=== PATIENT | female | born 1945 | race Caucasian/White ===

== ENCOUNTER 2018-07-13 08:34 | Day surgery (SDC) | payer MEDICARE, BC ==
[2018-07-13] VITALS (14 sets, daily range): BP systolic 90–170; BP diastolic 34–85
[~2018-07-13] VITALS: Ht 162.6 cm; Wt 82.3 kg
[~2018-07-13 08:34] MED LIST: APIX5TAB3 PO; ASPI-611 PO; ATOR10TA PO; CALC600T12 PO; LEVO88TA2 PO; LISI10TA4 PO; METO25TA6 PO; MULT-1085 PO; OMEP40CA37 PO; ZINC30TA2 PO
[2018-07-13] MEDS ORDERED: normal saline 1000ml 1,000 ML IV SCH (09:05)
[2018-07-13] MEDS ORDERED: fentaNYL/PF 50MCG/1 ML 2ML syringe IV ONE (09:05)
[2018-07-13] MEDS ORDERED: MIDAZolam 5mg/ml 2ml vial IV ONE (09:05)
[2018-07-13] MEDS ORDERED: FLEC100T2 PO (09:10)
[2018-07-13] MEDS ORDERED: RIVA20TA PO (09:10)
[2018-07-13] MEDS ORDERED: SYN0.088T PO (09:10)
[2018-07-13] MEDS ORDERED: DENO60DI IM (09:10)
[2018-07-13 09:37] LABS: BASOPHILS % (AUTO) 0.2 % (0-1); EOSINOPHILS # (AUTO) 0.1 X10'3 (0-0.9); EOSINOPHILS % (AUTO) 2.5 % (0-6); HEMATOCRIT 46.8 % (35.0-45.0); HEMOGLOBIN 15.7 g/dl (12.0-16.0); LYMPHOCYTES # (AUTO) 1.7 X10'3 (1.1-4.8); LYMPHOCYTES % (AUTO) 29.1 % (21-51); MEAN CORPUSCULAR HEMOGLOBIN 32.7 PG (27.0-31.0); MEAN CORPUSCULAR HGB CONC 33.7 % (33.0-36.5); MEAN CORPUSCULAR VOLUME 97.1 FL (78-98); MEAN PLATELET VOLUME 7.4 FL (7.4-10.4); MONOCYTES # (AUTO) 0.5 X10'3 (0-0.9); NEUTROPHILS # (AUTO) 3.5 X10'3 (1.8-7.7); NEUTROPHILS % (AUTO) 60.2 % (42-75); PLATELET COUNT 262 X10'3 (140-440); RED BLOOD COUNT 4.81 X10'6 (4.20-5.60); RED CELL DISTRIBUTION WIDTH 13.8 % (11.5-14.5); WHITE BLOOD COUNT 5.8 X10'3 (4.5-11.0)
[2018-07-13 09:54] LABS: ALBUMIN 4.2 G/DL (3.4-5.0); ANION GAP 11 (8-16); BLOOD UREA NITROGEN 20 MG/DL (7-18); BUN/CREATININE RATIO 25.3 (6.6-38.0); CALCIUM 9.3 MG/DL (8.5-10.1); CHLORIDE 100 MMOL/L (99-107); CREATININE 0.79 MG/DL (0.40-0.90); GLUCOSE 117 MG/DL (70-104); MAGNESIUM 2.2 MG/DL (1.5-2.4); POTASSIUM 3.8 MMOL/L (3.5-5.1); SODIUM 138 MMOL/L (135-145); eGFR 71 ML/MIN
[2018-07-13 10:06] LABS: INR 1.2 INR
== END 2018-07-13 11:10 | disposition home or self-care (01) ==
LOC: SSTAY O 08:34
PROVIDERS: ATTEND Internal Medicine Cardiovascular Disease
DX: I48.4 Atypical atrial flutter (principal); I48.91 Unspecified atrial fibrillation; I45.81 Long QT syndrome; J44.9 Chronic obstructive pulmonary disease, unspecified; E78.5 Hyperlipidemia, unspecified; E66.3 Overweight; I11.0 Hypertensive heart disease with heart failure; I50.9 Heart failure, unspecified; M81.0 Age-related osteoporosis without current pathological fracture; Z79.82 Long term (current) use of aspirin; Z87.891 Personal history of nicotine dependence; Z87.09 Personal history of other diseases of the respiratory system; Z85.41 Personal history of malignant neoplasm of cervix uteri; Z90.710 Acquired absence of both cervix and uterus; Z68.31 Body mass index [BMI] 31.0-31.9, adult; Z90.49 Acquired absence of other specified parts of digestive tract; Z98.890 Other specified postprocedural states; Z79.899 Other long term (current) drug therapy; Z82.49 Family history of ischemic heart disease and other diseases of the circulatory system; Z80.6 Family history of leukemia; Z83.6 Family history of other diseases of the respiratory system
CPT/HCPCS: 36415; 80048; 83735; 85025; 85610; 92960; 93005; J2250; J3010

== ENCOUNTER 2018-08-24 07:10 | Day surgery (SDC) | payer MEDICARE, BC ==
[2018-08-24] VITALS (12 sets, daily range): BP systolic 103–147; BP diastolic 48–79
[~2018-08-24] VITALS: Ht 162.6 cm; Wt 83.1 kg
[~2018-08-24 07:10] MED LIST changes: -APIX5TAB3 PO; +DENO60DI IM; +FLEC100T2 PO; -LEVO88TA2 PO; -METO25TA6 PO; -OMEP40CA37 PO; +RIVA20TA PO; +SYN0.088T PO
[2018-08-24] MEDS ORDERED: AMIO200T54 PO (07:43)
[2018-08-24] MEDS ORDERED: CALC1TAB2 (07:43)
[2018-08-24] MEDS ORDERED: normal saline 1000ml 1,000 ML IV SCH (07:45)
[2018-08-24] MEDS ORDERED: fentaNYL/PF 50MCG/1 ML 2ML syringe IV ONE (07:50)
[2018-08-24] MEDS ORDERED: MIDAZolam 1mg/ml 10ml vial IV ONE (07:50)
[2018-08-24 08:19] LABS: BASOPHILS % (AUTO) 0.6 % (0-1); EOSINOPHILS # (AUTO) 0.2 X10'3 (0-0.9); HEMATOCRIT 42.5 % (35.0-45.0); HEMOGLOBIN 14.5 g/dl (12.0-16.0); LYMPHOCYTES # (AUTO) 1.8 X10'3 (1.1-4.8); LYMPHOCYTES % (AUTO) 29.1 % (21-51); MEAN CORPUSCULAR HEMOGLOBIN 33.5 PG (27.0-31.0); MEAN CORPUSCULAR HGB CONC 34.2 g/dL (33.0-36.5); MEAN CORPUSCULAR VOLUME 98.1 FL (78-98); MEAN PLATELET VOLUME 7.3 FL (7.4-10.4); MONOCYTES # (AUTO) 0.6 X10'3 (0-0.9); MONOCYTES % (AUTO) 9.4 % (2-12); NEUTROPHILS # (AUTO) 3.7 X10'3 (1.8-7.7); NEUTROPHILS % (AUTO) 57.9 % (42-75); PLATELET COUNT 273 X10'3 (140-440); RED BLOOD COUNT 4.33 X10'6 (4.20-5.60); RED CELL DISTRIBUTION WIDTH 13.3 % (11.5-14.5); WHITE BLOOD COUNT 6.3 X10'3 (4.5-11.0)
[2018-08-24 08:22] LABS: INR 1.3 INR; PROTHROMBIN TIME 12.9 SECONDS (9.0-12.0)
[2018-08-24 08:25] LABS: ALBUMIN 3.9 G/DL (3.4-5.0); ANION GAP 9 (8-16); BLOOD UREA NITROGEN 25 MG/DL (7-18); BUN/CREATININE RATIO 26.3 (6.6-38.0); CALCIUM 9.4 MG/DL (8.5-10.1); CHLORIDE 102 MMOL/L (99-107); CREATININE 0.95 MG/DL (0.40-0.90); GLUCOSE 103 MG/DL (70-104); MAGNESIUM 2.1 MG/DL (1.5-2.4); POTASSIUM 3.9 MMOL/L (3.5-5.1); SODIUM 138 MMOL/L (135-145); TOTAL CARBON DIOXIDE 27.2 MMOL/L (24-32); eGFR 58 ML/MIN
--- NOTE | 2018-08-24 09:15 | NUR ---
PT MOBILE DID NOT TAKE 15MIN INTERVAL BP. PT A/O X4. sPO2 READING TAKEN WITH HR, DOCUMENTED
--- NOTE | 2018-08-24 09:27 | NUR ---
CORRECTION PT HR 79 NOT 97 CHARTED.
--- NOTE | 2018-08-24 10:00 | NUR ---
pt A/Ox4, visiting with daughter who is at the bedside.
== END 2018-08-24 11:15 | disposition home or self-care (01) ==
LOC: SSTAY O 07:10
PROVIDERS: ATTEND Internal Medicine Cardiovascular Disease
DX: I48.1 Persistent atrial fibrillation (principal); I48.4 Atypical atrial flutter; I50.9 Heart failure, unspecified; J44.9 Chronic obstructive pulmonary disease, unspecified; E78.5 Hyperlipidemia, unspecified; Z79.899 Other long term (current) drug therapy; E66.3 Overweight; Z90.710 Acquired absence of both cervix and uterus; Z90.49 Acquired absence of other specified parts of digestive tract; Z98.890 Other specified postprocedural states; Z82.49 Family history of ischemic heart disease and other diseases of the circulatory system; I11.0 Hypertensive heart disease with heart failure; Z79.01 Long term (current) use of anticoagulants
CPT/HCPCS: 36415; 80048; 83735; 85025; 85610; 92960; 93005; J2250; J3010; J7030

== ENCOUNTER 2019-05-31 10:01 | Day surgery (SDC) | payer MEDICARE, BC ==
[2019-05-31] VITALS (11 sets, daily range): BP systolic 92–173; BP diastolic 44–83
[~2019-05-31] VITALS: Ht 160 cm; Wt 86.0 kg
[~2019-05-31 10:01] MED LIST changes: +AMIO200T54 PO; +CALC1TAB2; -CALC600T12 PO; -FLEC100T2 PO; -ZINC30TA2 PO
[2019-05-31] MEDS ORDERED: MIDAZolam 5mg/ml 2ml vial IV ONE (10:25)
[2019-05-31] MEDS ORDERED: LORazepam 0.5 MG tablet PO ONE (10:25)
[2019-05-31] MEDS ORDERED: fentaNYL/PF 50MCG/1 ML 2ML syringe IV ONE (10:25)
[2019-05-31] MEDS ORDERED: FLEC100T2 PO (10:36)
[2019-05-31] MEDS ORDERED: APIX5TAB3 PO (10:36)
[2019-05-31 11:05] LABS: BASOPHILS % (AUTO) 0.7 % (0-1); EOSINOPHILS # (AUTO) 0.1 X10'3 (0-0.9); EOSINOPHILS % (AUTO) 2.1 % (0-6); HEMOGLOBIN 14.9 g/dl (12.0-16.0); LYMPHOCYTES # (AUTO) 1.9 X10'3 (1.1-4.8); LYMPHOCYTES % (AUTO) 28.8 % (21-51); MEAN CORPUSCULAR HEMOGLOBIN 33.2 PG (27.0-31.0); MEAN CORPUSCULAR HGB CONC 34.6 g/dL (33.0-36.5); MEAN PLATELET VOLUME 6.9 FL (7.4-10.4); MONOCYTES # (AUTO) 0.5 X10'3 (0-0.9); MONOCYTES % (AUTO) 7.2 % (2-12); NEUTROPHILS # (AUTO) 4.1 X10'3 (1.8-7.7); NEUTROPHILS % (AUTO) 61.2 % (42-75); PLATELET COUNT 285 X10'3 (140-440); RED BLOOD COUNT 4.48 X10'6 (4.20-5.60); RED CELL DISTRIBUTION WIDTH 12.7 % (11.5-14.5); WHITE BLOOD COUNT 6.6 X10'3 (4.5-11.0)
[2019-05-31 11:15] LABS: ALBUMIN 3.7 G/DL (3.4-5.0); ANION GAP 10 (8-16); BLOOD UREA NITROGEN 13 MG/DL (7-18); BUN/CREATININE RATIO 14.4 (6.6-38.0); CALCIUM 8.8 MG/DL (8.5-10.1); CHLORIDE 104 MMOL/L (99-107); GLUCOSE 110 MG/DL (70-104); POTASSIUM 3.8 MMOL/L (3.5-5.1); SODIUM 139 MMOL/L (135-145); TOTAL CARBON DIOXIDE 25.5 MMOL/L (24-32); eGFR 61 ML/MIN
[2019-05-31] MEDS ORDERED: atropine 0.1mg/ml 10ml syringe IV ONE (12:20)
== END 2019-05-31 16:45 | disposition home or self-care (01) ==
LOC: SSTAY O 10:01
PROVIDERS: ATTEND Internal Medicine Cardiovascular Disease
DX: I48.19 Other persistent atrial fibrillation (principal); J44.9 Chronic obstructive pulmonary disease, unspecified; Z68.33 Body mass index [BMI] 33.0-33.9, adult; I10 Essential (primary) hypertension; R01.1 Cardiac murmur, unspecified; Z87.891 Personal history of nicotine dependence
CPT/HCPCS: 36415; 80048; 83735; 85025; 85610; 92960; 93005; J0461; J2250; J3010

== ENCOUNTER 2019-08-09 07:17 | Day surgery (SDC) | payer MEDICARE, BC ==
[~2019-08-09] VITALS: Ht 162.6 cm; Wt 82.1 kg
[2019-08-09] VITALS (17 sets, daily range): BP systolic 75–149; BP diastolic 35–90
[~2019-08-09 07:17] MED LIST changes: -AMIO200T54 PO; +APIX5TAB3 PO; -ASPI-611 PO; -CALC1TAB2; -DENO60DI IM; +FLEC100T2 PO; -MULT-1085 PO; -RIVA20TA PO
[2019-08-09] MEDS ORDERED: atropine 0.1mg/ml 10ml syringe IV ONE (07:50)
[2019-08-09] MEDS ORDERED: normal saline 1000ml 1,000 ML IV SCH (07:50)
[2019-08-09] MEDS ORDERED: fentaNYL/PF 50MCG/1 ML 2ML syringe IV ONE (07:50)
[2019-08-09] MEDS ORDERED: MULT-1085 PO (07:52)
[2019-08-09] MEDS ORDERED: CALC600T22 PO (07:54)
--- NOTE | 2019-08-09 07:56 | NUR ---
called MD to discuss EKG result, waiting for call back.
[2019-08-09] MEDS ORDERED: ZINC50TA67 PO (07:57)
[2019-08-09 08:43] LABS: ALBUMIN 3.1 G/DL (3.4-5.0); ANION GAP 12 (8-16); BLOOD UREA NITROGEN 13 MG/DL (7-18); BUN/CREATININE RATIO 18.1 (6.6-38.0); CALCIUM 7.6 MG/DL (8.5-10.1); CHLORIDE 109 MMOL/L (99-107); CREATININE 0.72 MG/DL (0.40-0.90); GLUCOSE 105 MG/DL (70-104); MAGNESIUM 1.7 MG/DL (1.5-2.4); POTASSIUM 3.3 MMOL/L (3.5-5.1); SODIUM 144 MMOL/L (135-145); TOTAL CARBON DIOXIDE 23.5 MMOL/L (24-32); eGFR 79 ML/MIN
[2019-08-09] MEDS ORDERED: MIDAZolam 1mg/ml 10ml vial IV ONE (08:50)
[2019-08-09 09:16] LABS: BASOPHILS % (AUTO) 0.7 % (0-1); EOSINOPHILS # (AUTO) 0.1 X10'3 (0-0.9); EOSINOPHILS % (AUTO) 1.9 % (0-6); HEMATOCRIT 43.7 % (35.0-45.0); LYMPHOCYTES # (AUTO) 1.6 X10'3 (1.1-4.8); LYMPHOCYTES % (AUTO) 23.7 % (21-51); MEAN CORPUSCULAR HEMOGLOBIN 32.9 PG (27.0-31.0); MEAN CORPUSCULAR HGB CONC 34.4 g/dL (33.0-36.5); MEAN CORPUSCULAR VOLUME 95.6 FL (78-98); MEAN PLATELET VOLUME 6.8 FL (7.4-10.4); MONOCYTES # (AUTO) 0.5 X10'3 (0-0.9); MONOCYTES % (AUTO) 7.4 % (2-12); NEUTROPHILS # (AUTO) 4.6 X10'3 (1.8-7.7); NEUTROPHILS % (AUTO) 66.3 % (42-75); PLATELET COUNT 281 X10'3 (140-440); RED BLOOD COUNT 4.57 X10'6 (4.20-5.60); RED CELL DISTRIBUTION WIDTH 13.5 % (11.5-14.5)
[2019-08-09 09:30] LABS: ALBUMIN 3.5 G/DL (3.4-5.0); ANION GAP 8 (8-16); BLOOD UREA NITROGEN 15 MG/DL (7-18); BUN/CREATININE RATIO 16.9 (6.6-38.0); CHLORIDE 105 MMOL/L (99-107); CREATININE 0.89 MG/DL (0.40-0.90); GLUCOSE 105 MG/DL (70-104); POTASSIUM 4.2 MMOL/L (3.5-5.1); SODIUM 139 MMOL/L (135-145); TOTAL CARBON DIOXIDE 26.1 MMOL/L (24-32); eGFR 62 ML/MIN
--- NOTE | 2019-08-09 09:35 | NUR ---
BP 84/43, Bolus 250 ml being given. pt awake and talking, denies cp, denies sob. wheezes on inspiration. will continue to monitor.
== END 2019-08-09 11:20 | disposition home or self-care (01) ==
LOC: SSTAY O 07:17
PROVIDERS: ATTEND Internal Medicine Cardiovascular Disease
DX: I48.4 Atypical atrial flutter (principal)
CPT/HCPCS: 36415; 80048; 83735; 85025; 85610; 92960; J2250; J3010; J7030

== ENCOUNTER 2019-10-22 10:17 | Day surgery (SDC) | payer MEDICARE, BC ==
[2019-10-22] VITALS (12 sets, daily range): BP systolic 97–141; BP diastolic 49–82
[~2019-10-22] VITALS: Ht 162.6 cm; Wt 79.3 kg
[~2019-10-22 10:17] MED LIST changes: +CALC600T22 PO; +MULT-1085 PO; +ZINC50TA67 PO
[2019-10-22] MEDS ORDERED: MIDAZolam 1mg/ml 10ml vial IV ONE (10:40)
[2019-10-22] MEDS ORDERED: normal saline 1000ml 1,000 ML IV SCH (10:40)
[2019-10-22] MEDS ORDERED: fentaNYL/PF 50MCG/1 ML 2ML syringe IV ONE (10:40)
[2019-10-22] MEDS ORDERED: DOFE250C4 PO (10:55)
[2019-10-22] MEDS ORDERED: DOFE500C4 PO (10:55)
[2019-10-22] MEDS ORDERED: METO-467 PO (10:59)
[2019-10-22 11:20] LABS: BASOPHILS # (AUTO) 0.1 X10'3 (0-0.2); BASOPHILS % (AUTO) 0.8 % (0-1); EOSINOPHILS # (AUTO) 0.3 X10'3 (0-0.9); EOSINOPHILS % (AUTO) 4.7 % (0-6); HEMATOCRIT 42.1 % (35.0-45.0); HEMOGLOBIN 14.3 g/dl (12.0-16.0); LYMPHOCYTES # (AUTO) 2.1 X10'3 (1.1-4.8); LYMPHOCYTES % (AUTO) 32.3 % (21-51); MEAN CORPUSCULAR HEMOGLOBIN 32.9 PG (27.0-31.0); MEAN CORPUSCULAR HGB CONC 33.9 g/dL (33.0-36.5); MEAN CORPUSCULAR VOLUME 97.1 FL (78-98); MEAN PLATELET VOLUME 7.2 FL (7.4-10.4); MONOCYTES # (AUTO) 0.6 X10'3 (0-0.9); MONOCYTES % (AUTO) 9.4 % (2-12); NEUTROPHILS # (AUTO) 3.5 X10'3 (1.8-7.7); NEUTROPHILS % (AUTO) 52.8 % (42-75); PLATELET COUNT 260 X10'3 (140-440); RED BLOOD COUNT 4.34 X10'6 (4.20-5.60); RED CELL DISTRIBUTION WIDTH 13.2 % (11.5-14.5); WHITE BLOOD COUNT 6.6 X10'3 (4.5-11.0)
[2019-10-22 11:30] LABS: ALBUMIN 3.5 G/DL (3.4-5.0); ANION GAP 11 (8-16); BLOOD UREA NITROGEN 16 MG/DL (7-18); BUN/CREATININE RATIO 19.5 (6.6-38.0); CALCIUM 8.9 MG/DL (8.5-10.1); CHLORIDE 106 MMOL/L (99-107); CREATININE 0.82 MG/DL (0.40-0.90); GLUCOSE 99 MG/DL (70-104); MAGNESIUM 2.1 MG/DL (1.5-2.4); POTASSIUM 3.9 MMOL/L (3.5-5.1); SODIUM 144 MMOL/L (135-145); TOTAL CARBON DIOXIDE 27.5 MMOL/L (24-32); eGFR 68 ML/MIN
== END 2019-10-22 13:50 | disposition home or self-care (01) ==
LOC: SSTAY O 10:17
PROVIDERS: ATTEND Internal Medicine Cardiovascular Disease
DX: I48.91 Unspecified atrial fibrillation (principal); I11.0 Hypertensive heart disease with heart failure; I50.9 Heart failure, unspecified; J44.9 Chronic obstructive pulmonary disease, unspecified; E78.5 Hyperlipidemia, unspecified; E66.3 Overweight; Z68.32 Body mass index [BMI] 32.0-32.9, adult; Z90.49 Acquired absence of other specified parts of digestive tract; Z90.710 Acquired absence of both cervix and uterus; Z98.890 Other specified postprocedural states; Z79.899 Other long term (current) drug therapy; Z87.891 Personal history of nicotine dependence; Z82.49 Family history of ischemic heart disease and other diseases of the circulatory system
CPT/HCPCS: 36415; 80048; 83735; 85025; 85610; 92960; 93005; 94760; J2250; J3010; J7030

== ENCOUNTER 2021-02-09 07:54 | Day surgery (SDC) | payer MEDICARE, BC ==
[2021-02-09] VITALS (12 sets, daily range): BP systolic 103–162; BP diastolic 48–81
[~2021-02-09] VITALS: Ht 162.6 cm; Wt 84.6 kg
[~2021-02-09 07:54] MED LIST changes: +DOFE250C4 PO; -FLEC100T2 PO; +LISI10TA27 PO; -LISI10TA4 PO; +METO-467 PO
[2021-02-09] MEDS ORDERED: DOFE125C PO (08:32)
[2021-02-09] MEDS ORDERED: MIDAZolam 1mg/ml 10ml vial IV ONE ×2 (08:40→09:30)
[2021-02-09] MEDS ORDERED: fentaNYL/PF 50MCG/1 ML 2ML syringe IV ONE ×2 (08:40→09:30)
[2021-02-09] MEDS ORDERED: normal saline 1000ml 1,000 ML IV PRN (08:40)
[2021-02-09 09:03] LABS: BASOPHILS % (AUTO) 0.5 % (0-1); EOSINOPHILS # (AUTO) 0.2 X10'3 (0-0.9); HEMATOCRIT 39.1 % (35.0-45.0); HEMOGLOBIN 13.3 g/dl (12.0-16.0); LYMPHOCYTES # (AUTO) 1.7 X10'3 (1.1-4.8); LYMPHOCYTES % (AUTO) 32.2 % (21-51); MEAN CORPUSCULAR HGB CONC 34.1 g/dL (33.0-36.5); MEAN CORPUSCULAR VOLUME 93.9 FL (78-98); MEAN PLATELET VOLUME 6.7 FL (7.4-10.4); MONOCYTES # (AUTO) 0.5 X10'3 (0-0.9); MONOCYTES % (AUTO) 9.7 % (2-12); NEUTROPHILS # (AUTO) 2.9 X10'3 (1.8-7.7); NEUTROPHILS % (AUTO) 54.6 % (42-75); PLATELET COUNT 256 X10'3 (140-440); RED BLOOD COUNT 4.16 X10'6 (4.20-5.60); RED CELL DISTRIBUTION WIDTH 13.7 % (11.5-14.5); WHITE BLOOD COUNT 5.4 X10'3 (4.5-11.0)
[2021-02-09 09:31] LABS: ALBUMIN 3.3 G/DL (3.4-5.0); ANION GAP 9 (8-16); BLOOD UREA NITROGEN 18 MG/DL (7-18); BUN/CREATININE RATIO 20.2 (6.6-38.0); CALCIUM 8.6 MG/DL (8.5-10.1); CHLORIDE 106 MMOL/L (99-107); CREATININE 0.89 MG/DL (0.40-0.90); GLUCOSE 96 MG/DL (70-104); MAGNESIUM 2.2 MG/DL (1.5-2.4); POTASSIUM 4.2 MMOL/L (3.5-5.1); SODIUM 143 MMOL/L (135-145); TOTAL CARBON DIOXIDE 27.8 MMOL/L (24-32); eGFR 62 ML/MIN
== END 2021-02-09 12:45 | disposition home or self-care (01) ==
LOC: SSTAY O 07:54
PROVIDERS: ATTEND Internal Medicine Cardiovascular Disease
DX: I48.4 Atypical atrial flutter (principal); I48.91 Unspecified atrial fibrillation; J44.9 Chronic obstructive pulmonary disease, unspecified; E78.5 Hyperlipidemia, unspecified; E66.3 Overweight; Z68.32 Body mass index [BMI] 32.0-32.9, adult; Z90.710 Acquired absence of both cervix and uterus; Z90.49 Acquired absence of other specified parts of digestive tract; Z98.890 Other specified postprocedural states; Z79.01 Long term (current) use of anticoagulants; Z79.899 Other long term (current) drug therapy; Z87.891 Personal history of nicotine dependence; Z82.49 Family history of ischemic heart disease and other diseases of the circulatory system
CPT/HCPCS: 36415; 80048; 83735; 85025; 85610; 92960; 93005; 94760; 94799; J2250; J3010

== ENCOUNTER 2025-03-18 09:40 | Day surgery (SDC) | payer OTHER, BC ==
[~2025-03-18] VITALS: Ht 162.6 cm; Wt 77.2 kg
[2025-03-18] VITALS (7 sets, daily range): BP systolic 84–101; BP diastolic 47–57; PULSE 59–71; RESP 15–21; O2SAT 95–99
[~2025-03-18 09:40] MED LIST changes: +DOFE125C2 PO; -DOFE250C4 PO
[2025-03-18] MEDS ORDERED: amiodarone 50MG/ML inj IV ONE (10:05)
[2025-03-18] MEDS ORDERED: fentaNYL/PF 50MCG/1 ML 2ML syringe ONE (10:06)
[2025-03-18] MEDS ORDERED: midazolam 1 mg/ML 2ml injection ONE ×3 (10:06→11:33)
[2025-03-18] MEDS ORDERED: atropine 0.1mg/ml 10ml syringe ONE (10:06)
--- NOTE | 2025-03-18 10:06 | ELECTROCARDIOGRAPH REPORT ---
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 Reading MD: Dr. Mark Encarnacion Measurements Intervals [place] Rate: 94 P: 0 IL: 0 QRS: 82 QRSD: 87 T: -15 QT: 381 QTc: 477 Interpretive Statements Atrial fibrillation Borderline right axis deviation Borderline T abnormalities, inferior leads Electronically Signed On 03-21-2025 7:08:[address] Mark Encarnacion Please click the below link to view image of tracing.
[2025-03-18] MEDS ORDERED: normal saline 1000ml 1,000 ML IV SCH (10:25)
[2025-03-18] MEDS ORDERED: fentaNYL/PF 50MCG/1 ML 2ML syringe IV PRN (10:25)
[2025-03-18] MEDS ORDERED: MIDAZolam 1mg/ml 10ml vial IV PRN (10:25)
[2025-03-18 10:47] LABS: MEAN PLATELET VOLUME 7.1 FL (7.4-10.4); RED CELL DISTRIBUTION WIDTH 13.6 % (11.5-14.5)
[2025-03-18 11:01] LABS: INR 1.0 INR
[2025-03-18 11:02] LABS: CREATININE 1.05 MG/DL (0.40-0.90); TOTAL CARBON DIOXIDE 27.8 MMOL/L (24-32); eCRCL 36 ML/MIN; eGFR 50 ML/MIN
--- NOTE | 2025-03-18 13:45 | ELECTROCARDIOGRAPH REPORT ---
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 Mark Encarnacion Measurements Intervals [place] Rate: 61 P: 78 MA: 335 QRS: 81 QRSD: 100 T: 54 QT: 476 QTc: 480 Interpretive Statements Sinus rhythm Prolonged MA interval Borderline right axis deviation Low voltage, precordial leads Borderline T abnormalities, anterior leads Electronically Signed On 03-21-2025 7:09:[address] Mark Encarnacion Please click the below link to view image of tracing.
--- NOTE | 2025-03-18 14:17 | CARDIOLOGY REPORT ---
DATE OF SERVICE: 03/18/2025 DICTATING PHYSICIAN: ZOYA DUMONT DO PROCEDURE: DC cardioversion. PREPROCEDURAL DIAGNOSIS: Type 2 atrial flutter. POSTPROCEDURAL DIAGNOSIS: Type 2 atrial flutter, cardioverted to sinus rhythm. DESCRIPTION OF PROCEDURE: The patient was sedated with fentanyl and Versed. She was then given one 150 joule synchronized shock resulting in conversion to sinus rhythm. COMPLICATIONS: There were no complications. PLAN: Ongoing medical therapy. FINAL DIAGNOSIS: Type 2 atrial flutter, cardioverted to sinus rhythm. ZOYA DUMONT DO TID: [id number] RECEIPT: [id number] RP/SCOTT
--- NOTE | 2025-03-19 11:20 | CARDIOLOGY REPORT ---
APPROVED REPORT EXAM: Limited focused transesophageal echocardiogram with color flow Doppler and Synchronized Cardioversion. Patient Location: [facility] Blood Pressure: 173/80 mmHg Heart Rate: 80's bpm Rhythm: Atrial Fibrillation Indications Limited to check left atrial appendage for thrombus Atrail Fibrillation MAYURI probe passed by Tiesha Yates DO Online [employer]er is Tiesha Yates DO No previous echo LEFT VENTRICLE LV appears normal in size and thickness. Overall systolic function appears normal. LVEF is 60%. RIGHT VENTRICLE RV has normal contractility. ATRIA LV appears severely dilated. Left atrial appendage is visualized in multiple planes and appears normal without debris. Left upper pulmonary vein identified and isolated by 2D and color Doppler. AORTIC VALVE AV is minimally sclerotic without stenosis. No insufficiency. MITRAL VALVE MV with mild annular thickening and trace regurgitation. TRICUSPID VALVE Looks normal;no TR GREAT VESSELS Atherosclerotic plaque is present in the descending aorta. PERICARDIUM There is no pericardial effusion, small epicardial pad present.
== END 2025-03-18 13:45 | disposition home or self-care (01) ==
LOC: SSTAY O 09:40
PROVIDERS: ATTEND Internal Medicine Cardiovascular Disease
DX: I48.4 Atypical atrial flutter (principal); I48.91 Unspecified atrial fibrillation; R94.31 Abnormal electrocardiogram [ECG] [EKG]; I70.0 Atherosclerosis of aorta; I11.0 Hypertensive heart disease with heart failure; I50.9 Heart failure, unspecified; E78.5 Hyperlipidemia, unspecified; J44.9 Chronic obstructive pulmonary disease, unspecified; E66.3 Overweight; Z79.01 Long term (current) use of anticoagulants; Z79.890 Hormone replacement therapy; Z79.899 Other long term (current) drug therapy; Z90.49 Acquired absence of other specified parts of digestive tract; Z90.710 Acquired absence of both cervix and uterus; Z98.890 Other specified postprocedural states; Z68.29 Body mass index [BMI] 29.0-29.9, adult
CPT/HCPCS: 36415; 80048; 83735; 85025; 85610; 92960; 93005; 93312; 93325; J2250; J3010; J7030; 99152; J0282; J0461